=== PATIENT | male | born 1955 | race Caucasian/White ===

== ENCOUNTER → 2022-02-21 | Outpatient (CLI) | payer OTHER, SELFPAY | END | disposition home or self-care (01) | PROVIDERS: Referring Provider Internal Medicine Gastroenterology; Visit Provider Internal Medicine Gastroenterology | DX: R19.7 Diarrhea, unspecified (principal); Z83.79 Family history of other diseases of the digestive system | CPT/HCPCS: 36415 ==

== ENCOUNTER 2022-07-03 09:58 | Outpatient (CLI) | payer OTHER, SELFPAY ==
[2022-07-03 10:37] LABS: Absolute Lymphocyte Count 1.55 X10^3/uL (0.83-4.51); Absolute Neutrophil Count 4.5 X10^3/uL (2.0-7.7); Basophil# 0.05 X10^3/uL; Basophil% 0.7 % (0-1); Eosinophil# 0.12 X10^3/uL; Eosinophils% 1.8 % (0-5); Erythrocyte Sedimentation Rate 10 mm/hr (0-20); Hematocrit 43.5 % (40-54); Hemoglobin 14.4 g/dL (13.0-16.5); Lymphocyte # 1.55 X10^3/ul (0.83-4.51); Mean Corp Hgb Conc 33.1 g/dL (32-36); Mean Corpuscular Hgb 28.8 pg (27.0-32.0); Mean Platelet Vol. 9.6 fl (6.2-12.0); Monocyte# 0.55 X10^3/uL; Monocyte% 8.2 % (0-10); NRBC Flagged by Analyzer 0 % (0-5); Neutrophil # 4.45 X10^3/uL (2.7-7.7); Neutrophil % 66.2 % (47-70); Platelet Count 393 K/mm3 (150-450); RBC Distribution Width CV 13.3 % (11.6-14.6); RBC Distribution Width SD 42.5 fl (35.1-43.9); White Blood Count 6.7 K/mm3 (4.4-11.0)
[2022-07-03 11:12] LABS: ALB/GLOB Ratio 0.9 RATIO (0.9-2.4); AST(SGOT) 24 U/L (15-37); Alanine Aminotransfer ALT/SGPT 33 U/L (16-61); Albumin, Serum 3.7 g/dL (3.2-5.0); Alkaline Phosphatase 123 U/L (45-117); Anion Gap 7 (5-15); BUN 14 mg/dL (7-18); BUN/Creat Ratio 18.7 RATIO (10-20); CRP < 2.90 mg/L (0.0-3.0); Calcium,Total 8.8 mg/dL (8.5-10.1); Chloride 104 mmol/L (98-107); Creatinine, Serum 0.75 mg/dL (0.70-1.30); EST Glomerular Filtration Rate 110 mL/min (>60); Est Glom Filt Rate - Afr Amer 133 mL/min (>60); Globulin 3.9 g/dL (2.2-4.2); Glucose 108 mg/dL (74-106); LDH 200 U/L (87-241); Potassium 3.9 mmol/L (3.5-5.1); Protein, Total 7.6 g/dL (6.4-8.2); Sodium Level 140 mmol/L (136-145)
[2022-07-04 15:08] LABS: Anti-Centromere B Ab <0.2 AI (0.0-0.9); Anti-Chromatin <0.2 AI (0.0-0.9); Anti-Jo <0.2 AI (0.0-0.9); Anti-Scleroderma-70 AB <0.2 AI (0.0-0.9); Endomysial Antibody IgA Negative (Negative); RNP Ab <0.2 AI (0.0-0.9); SJOGREN'S Anti-SS-A test < 0.2 AI (0.0-0.9); SJOGREN'S Anti-SS-B test < 0.2 AI (0.0-0.9); Smith Ab <0.2 AI (0.0-0.9)
[2022-07-04 16:23] LABS: Immunoglobulin A 128 mg/dL (61-437); t-Transglutaminase IgA <2 U/mL (0-3)
[2022-07-04 16:24] LABS: Anti-dsDNA Ab <1 IU/mL (0-9)
[2022-07-06 00:07] LABS: Albumin 3.9 g/dL (2.9-4.4); Alpha-1-Globulins 0.3 g/dL (0.0-0.4); Alpha-2-Globulins 0.8 g/dL (0.4-1.0); Cytoplasmic Ab (C-ANCA) <1:20 titer (Neg:<1:20); Gamma Globulin 1.2 g/dL (0.4-1.8); Immunoglobulin A 126 mg/dL (61-437); Immunoglobulin E 28 IU/mL (6-495); Immunoglobulin G 1142 mg/dL (603-1613); Immunoglobulin M 90 mg/dL (20-172); PROEL- TOTAL PROTEIN 7.4 g/dL (6.0-8.5)
[2022-07-06 10:27] LABS: Perinuclear Ab (P-ANCA) <1:20 titer (Neg:<1:20)
[2022-07-06 10:29] LABS: Calprotectin, Stool <16 ug/g (0-120)
== END 2022-07-03 23:59 | disposition home or self-care (01) ==
LOC: LAB 10:01
PROVIDERS: Visit Provider Nurse Practitioner Adult Health
DX: R19.8 Other specified symptoms and signs involving the digestive system and abdomen (principal); K52.9 Noninfective gastroenteritis and colitis, unspecified
CPT/HCPCS: 36415; 80053; 82784; 82785; 83516; 83615; 83630; 83993; 84165; 85025; 85652; 86140; 86225; 86235; 86255; 86256; 86334; 87493; 87506

== ENCOUNTER 2022-07-04 08:44 | Outpatient (CLI) | payer OTHER, SELFPAY | END 2022-07-04 23:59 | disposition home or self-care (01) | PROVIDERS: Referring Provider Nurse Practitioner Adult Health; Visit Provider Nurse Practitioner Adult Health | DX: K52.9 Noninfective gastroenteritis and colitis, unspecified (principal) | CPT/HCPCS: 87177; 87209 ==

== ENCOUNTER → 2022-08-01 | Outpatient (CLI) | payer OTHER, SELFPAY ==
--- NOTE | 2022-08-01 17:46 | CT_ITS ---
STUDY: CT ABDOMEN AND PELVIS WITH CONTRAST REASON FOR EXAM: Female, 67 years old. Chronic diarrhea, lower abd pain -- oral and IV RADIATION DOSAGE (If Supplied By Facility): CTDIvol = ( 14.36 ) mGy, DLP = ( 1183.34 ) mGycm TECHNIQUE: Transaxial images were obtained from the dome of the diaphragm to the symphysis pubis with oral contrast. 100mL Isovue-370 was administered. Sagittal and coronal images were reconstructed. Individualized dose optimization techniques were used for this CT. COMPARISON: None. FINDINGS: The visualized lung bases are unremarkable. The visualized portions of the heart are within normal limits. Normal liver. Normal gallbladder and extrahepatic biliary system. Normal spleen. Normal pancreas. Normal bilateral adrenal glands. Normal right kidney. Normal left kidney. Normal visualized stomach. Normal small intestine. Normal colon. The appendix is visualized and appears normal. There is diffuse atherosclerotic calcification of the abdominal aorta, without a demonstrated aneurysm. Normal inferior vena cava. Normal retroperitoneum. Normal urinary bladder. There is atrophy of the uterus. No free fluid in the abdomen or pelvis. Normal abdominal wall. There is mild degenerative change of the spine. CT/Abdomen/Pelvis WITH Contrast IMPRESSION: No dominant mass or obstruction. No hydronephrosis. Electronically Signed: Armando Watson MD at 19:00 [facility] ,
== END | disposition home or self-care (01) ==
LOC: CT 17:41
PROVIDERS: Referring Provider Nurse Practitioner Adult Health; Visit Provider Nurse Practitioner Adult Health
DX: K52.9 Noninfective gastroenteritis and colitis, unspecified (principal); I70.0 Atherosclerosis of aorta; N85.8 Other specified noninflammatory disorders of uterus; R10.9 Unspecified abdominal pain
CPT/HCPCS: 74177; Q9967

== ENCOUNTER 2022-08-29 05:22 | Day surgery (SDC) | payer OTHER, SELFPAY ==
[2022-08-29] VITALS (7 sets, daily range): BP systolic 80–129; BP diastolic 56–92; PULSE 71–102; RESP 16; TEMP 36.1–36.3; O2SAT 94–100; BMI 31.8
--- NOTE | 2022-08-29 | GASB_PTH ---
PATIENT: JUAN GARVEY LOC: [facility] U#:[id number] AGE/SX: 67/F ROOM: RE08/29/[address]: Dr. Jovanny Santiago DO : 1955 BED: DIS: 08/29/2022 SPEC #: [id number] RECD: 08/29/22 13:21 STATUS: JOSE YAYA #: [id number] CYNTHIA: 08/29/22 00:[address]: Jovanny Santiago DEPT: SURGICAL PATHOLOGY RECD BY: John Vizcaino ENTERED: 08/30/22 09:23 SP TYPE: Gastric Bx GABRIELLE DR: Dr. Gloria Perkins DO Tissues: A - Duodenum, NOS B - Gastric mucous membrane C - Ileum, NOS D - COLON BIOPSY E - Transverse colon Procedures: Surgery Specimen Level IV HEADER OPERATION: Colonoscopy, EGD ([facility]), biopsies, polypectomy PRE-OP DIAGNOSIS: Chronic diarrhea, tenesmus, abdominal pain TISSUE SUBMITTED: A ? Duodenum biopsy, B ? Gastric pylorus biopsy, C ? Terminal ileum Duodenum biopsy, D ? Random colonic biopsies, E ? Polyp transverse colon MICROSCOPIC DIAGNOSIS A. Duodenum, biopsy: Minimal nonspecific chronic inflammation. B. Gastric pylorus, biopsy: Mild chronic inflammation. See comment. C. Terminal ileum, biopsy: No pathologic change. D. Colon, random biopsy: No pathologic change. E. Transverse colon polyp, biopsy: Tubular adenoma. AM:zari 08/31/2022 COMMENT B. The results of immunohistochemistry for Helicobacter pylori will be reported separately ([id number]). MICROSCOPIC DESCRIPTION Slides are reviewed. GROSS DESCRIPTION A - Received in fixative is one container labeled with the patient's name and designated duodenum. The specimen consists of three irregular fragments of light reddy soft tissue that in aggregate measure 1 x 0.3 x 0.1 cm. The specimen is totally submitted in one cassette. B - Received in fixative is one container labeled with the patient's name and designated gastric pylorus biopsy. The specimen consists of two irregular fragments of light reddy soft tissue that in aggregate measure 0.6 x 0.5 x 0.1 cm. The specimen is totally submitted in one cassette. C - Received in fixative is one container labeled with the patient's name and designated terminal ileum biopsy. The specimen consists of multiple irregular fragments of light reddy soft tissue that in aggregate measure 1.2 x 1 x 0.1 cm. The specimen is totally submitted in one cassette. D - Received in fixative is one container labeled with the patient's name and designated random colon biopsy. The specimen consists of multiple irregular fragments of light reddy soft tissue that in aggregate measure 2 x 1 x 0.1 cm. The specimen is totally submitted in one cassette. E - Received in fixative is one container labeled with the patient's name and designated polyp transverse colon. The specimen consists of one irregular fragment of light reddy soft tissue that measures 0.5 x 0.3 x 0.1 cm. The specimen is totally submitted in one cassette. / AM:zari 08/30/2022 TC:3 CPT: 63108 x5
[2022-08-29] MEDS: Lactated Ringers 1,000 ML 15 ML IV (05:54)
--- NOTE | 2022-08-29 06:29 | HP.PCM_ITS ---
History and Physical Date of Admission: 08/29/22 [facility] HPI Chief Complaint: diarrhea Details: JUAN GARVEY, is a 67 M who presents to the office today for diarrhea. She reports a long history of IBS with diarrhea which worsened significantly in December 2021. She ate sauerkraut daily x 3 days and that's when the diarrhea flared. Prior to that she used to take Imodium 1-2 pills most days to manage her diarrhea. Now she may need up to 8 Imodium tablets per day. She is also taking colestipol 2 grams daily. On that regimen she has 3-5 BMs daily in the AM when she gets up, starts w/in 30 min of getting up, not related to eating, then has tenesmus the remainder of the day. Often has stool when she wipes even if she doesn't have BM. Stool can be formed or can be loose. Has to wear pad for fear of accidents. Has accidents because of urgency. Always has to take extra clothes with her. Sometimes has dumping after eating. Had nocturnal diarrhea when this started earlier this year. Gets a pain in the right lower back when she is going to have bad diarrhea. Stopped dicyclomine 2 wks ago, no problem with cramps, no change in diarrhea. Treated with xifaxan earlier this year x 2. May have tried viberzi, no significant relief. On probiotic w/o relief. Now on colestipol 2 pills once a day, and is better but still not back to baseline. Daughter and sister have celiac disease, pt has the gene for celiac. Daughter was false negative for celiac until she was biopsied. Good appetite. No nausea, vomiting, heartburn. No melena or hematochezia. Weight is stable. Denies joint pain/inflammation, rash, eye oral symptoms. Last colonoscopy 2019--negative. No prior EGD. 12/2021 neg C diff 04/2022 hgb 14.5, platelets 374, bili 1.5 high, normal ast/alt/alk phos, TSH 1.26 ROS Const Constitutional: No fatigue ENT ENT: No difficulty swallowing Gastro GI: Positive for diarrhea; No abdominal pain, belching, bloating, change in bowel habits, change in stool character, coffee ground emesis, constipation, cramping, heartburn, difficulty swallowing, feeling full early, excessive flatus, incontinent of stools, Vomiting blood/hematemesis, Blood in stool, loose stools, Black,tarry stools, nausea/dyspepsia, pain with swallowing, vomiting or other Musc Musculoskeletal: Positive for numbness and tingling; No joint pain Skin Skin: No yellowing of the eye or itchy eyes Neuro Neurology: Positive for numbness and tingling Psych Psychiatric: No anxiety and No depression Endo Endocrine: No fatigue Aller/Imm Allergy/Immunologic: No itchy eyes Yifan/Lymp Hematologic/Lymphatic: No easy bleeding or easy bruising Exam Const General: cooperative and comfortable Nutritional Appearance: obese Orientation: alert, awake and oriented x3 HENMT Head: normal to inspection Eyes Conjunctivae: conjunctivae normal Sclera: sclerae normal Resp Effort & Inspection: normal respiratory effort GI Inspection: normal to inspection Palpation: soft, no hepatosplenomegaly, no masses and nontender Skin General: no rashes or lesions noted Neuro Gait: normal gait Quality Reporting Tobacco Screening ([facility] 138) Smoking Status: Never smoker Assessment and Plan Assessment and Plan (1) Chronic diarrhea: ?Status:?Chronic ?Plan: 67 yr old female with chronic diarrhea, hx of IBS-diarrhea, but significantly worse x 6 months. Tests for celiac, IBD, autoimmune, inflammation Stool tests for inflammation, infection. Once we r/o infection we can rx lomotil (would want mailorder rx). Will get EGD to eval for gastritis, bile reflux, eval of duodenum for celiac, and colonoscopy to eval for IBD, microscopic colitis, polyps, malignancy. Consider capsule endoscopy. CT abd pel w/ oral and IV f/u after endoscopies, will call with lab results in the meantime (2) Tenesmus: ?Status:?Acute ?Plan: as above (3) Abdominal pain: ?Status:?Acute ?Plan: as above ? ? ? Orders: Orders Comprehensive Metabolic Profil Today K52.9 - Noninfective gastroenteritis and colitis, unspecified, R19.8 - Other specified symptoms and signs involving the digestive system and abdomen ? CRP Today K52.9 - Noninfective gastroenteritis and colitis, unspecified, R19.8 - Other specified symptoms and signs involving the digestive system and abdomen ? LDH Today K52.9 - Noninfective gastroenteritis and colitis, unspecified, R19.8 - Other specified symptoms and signs involving the digestive system and abdomen ? CBC W/Diff, Automated Today K52.9 - Noninfective gastroenteritis and colitis, unspecified, R19.8 - Other specified symptoms and signs involving the digestive system and abdomen ? Erythrocyte Sed Rate Today K52.9 - Noninfective gastroenteritis and colitis, unspecified, R19.8 - Other specified symptoms and signs involving the digestive system and abdomen ? ALEXIS Comprehensive Panel Today K52.9 - Noninfective gastroenteritis and colitis, unspecified, R19.8 - Other specified symptoms and signs involving the digestive system and abdomen ? Calprotectin, Stool Today K52.9 - Noninfective gastroenteritis and colitis, unspecified, R19.8 - Other specified symptoms and signs involving the digestive system and abdomen ? Stool Lactoferrin/WBC Today K52.9 - Noninfective gastroenteritis and colitis, unspecified, K58.9 - Irritable bowel syndrome without diarrhea, R19.8 - Other specified symptoms and signs involving the digestive system and abdomen ? ANCA Today K52.9 - Noninfective gastroenteritis and colitis, unspecified, R19.8 - Other specified symptoms and signs involving the digestive system and abdomen ? Celiac Disease Profile Today K52.9 - Noninfective gastroenteritis and colitis, unspecified, R19.8 - Other specified symptoms and signs involving the digestive system and abdomen ? Immunoglobulins G/A/M/E Today K52.9 - Noninfective gastroenteritis and colitis, unspecified, R19.8 - Other specified symptoms and signs involving the digestive system and abdomen ? HARRY + Protein Elect, Serum Today K52.9 - Noninfective gastroenteritis and colitis, unspecified, R19.8 - Other specified symptoms and signs involving the digestive system and abdomen ? Miscellaneous Lab Procedure Today K52.9 - Noninfective gastroenteritis and colitis, unspecified, R19.8 - Other specified symptoms and signs involving the digestive system and abdomen ? CDIFF (PCR) Today K52.9 - Noninfective gastroenteritis and colitis, unspecified ? ENTERIC PATHOGEN PANEL STOOL Today K52.9 - Noninfective gastroenteritis and colitis, unspecified, K58.9 - Irritable bowel syndrome without diarrhea ? Abdomen/Pelvis WITH Contrast Today K52.9 - Noninfective gastroenteritis and colitis, unspecified, R10.9 - Unspecified abdominal pain ? Medications: Discontinued dicyclomine ?? Discontinued Reason:? Pt no longer taking 20 mg? PO BID ? ? I have examined the patient and the H&P has been reviewed. There are no clinical changes since date of exam.
--- NOTE | 2022-08-29 06:30 | IMM_PTH ---
PATIENT: JUAN GARVEY LOC: [facility] U#:[id number] AGE/SX: 67/F ROOM: RE08/29/[address]: Dr. Jovanny Santiago DO : 1955 BED: DIS: 08/29/2022 SPEC #: [id number] RECD: 08/30/22 12:16 STATUS: JOSE YAYA #: [id number] CYNTHIA: 08/29/22 06:[address]: Jovanny Santiago DEPT: IMMUNOHISTOCHEMISTRY RECD BY: Onelia Merida ENTERED: 08/30/22 12:17 SP TYPE: IMMUNO OTHR DR: Dr. Gloria Perkins DO Tissues: B - Stomach, NOS Procedures: H Pylori (initial) PHYSICIAN & INSTITUTION [place] [id number] SPECIMEN INFORMATION: Tissue Source: B ? Gastric pylorus Clinical Info: Diarrhea, abdominal pain, tenesmus Specimen Number: [id number] CPT code: 67762 METHODOLOGY: Deparaffinized sections of prefer/formalin-fixed tissue or PAP/DQ stained slides are incubated with monoclonal/polyclonal antibodies/oligonucleotide probes. Localization is made via biotin free immunoperoxidase method. Appropriate controls are performed and reacted as expected. Results on target cell population are indicated in the following table: RESULTS: ANTIBODY / CLONE RESULT Block B H Pylori (polyclonal) negative These tests were developed and their performance characteristics determined by [facility]. They may not have been cleared or approved by the U.S. Food and Drug Administration. The FDA has determined that such clearance or approval is not necessary. The above immunohistochemical/dualISH markers are ordered and reviewed by the Pathologist. INTERPRETATION: B. Gastric pylorus, biopsy: Negative for Helicobacter pylori organisms. AM:azri 08/31/2022
--- NOTE | 2022-08-29 07:12 | OP.EGD_ITS ---
Patient Name: Leticia Reyes Procedure Date: 08/29/2022 6:19 AM Date of : 1955 Age: 67 Procedure: Upper GI endoscopy Indications: Epigastric abdominal pain Providers: Jovanny Santiago DO Medicines: Monitored Anesthesia Care Patient Profile: This is a 67 year old female. Refer to note in patient chart for documentation of history and physical. Patient has symptoms of chronic abdominal cramping. Complications: No immediate complications. Procedure: Pre-Anesthesia Assessment: - Prior to the procedure, a History and Physical was performed, and patient medications and allergies were reviewed. The risks and benefits of the procedure and the sedation options and risks were discussed with the patient. All questions were answered and informed consent was obtained. Patient identification and proposed procedure were verified by the physician in the pre-procedure area. Mental Status Examination: alert and oriented. Airway Examination: normal oropharyngeal airway and neck mobility. Prophylactic Antibiotics: The patient does not require prophylactic antibiotics. Prior Anticoagulants: The patient has taken no previous anticoagulant or antiplatelet agents. After reviewing the risks and benefits, the patient was deemed in satisfactory condition to undergo the procedure. The anesthesia plan was to use monitored anesthesia care (MAC). Immediately prior to administration of medications, the patient was re-assessed for adequacy to receive sedatives. The heart rate, respiratory rate, oxygen saturations, blood pressure, adequacy of pulmonary ventilation, and response to care were monitored throughout the procedure. The physical status of the patient was re-assessed after the procedure. After obtaining informed consent, the endoscope was passed under direct vision. Throughout the procedure, the patient's blood pressure, pulse, and oxygen saturations were monitored continuously. The colonoscope was introduced through the mouth, and advanced to the second part of duodenum. The upper GI endoscopy was accomplished without difficulty. The patient tolerated the procedure well. Scope In: 6:38:50 AM Scope Out: 6:43:50 AM Total Procedure Duration Time 0 hours 5 minutes 0 seconds Findings: LA Grade B (one or more mucosal breaks greater than 5 mm, not extending between the tops of two mucosal folds) esophagitis with no bleeding was found 35 to 37 cm from the incisors. A small hiatal hernia was present. Patchy mildly erythematous mucosa without bleeding was found in the prepyloric region of the stomach. Biopsies were taken with a cold forceps for histology. Verification of patient identification for the specimen was done. Estimated blood loss was minimal. Four non-bleeding superficial duodenal ulcers with no stigmata of bleeding were found in the duodenal bulb. The largest lesion was 1 mm in largest dimension. Biopsies were taken with a cold forceps for histology. Verification of patient identification for the specimen was done. This was biopsied with a cold forceps for histology. Verification of patient identification for the specimen was done. Estimated blood loss was minimal. Impression: - LA Grade B reflux esophagitis. - Small hiatal hernia. - Erythematous mucosa in the prepyloric region of the stomach. Biopsied. - Multiple non-bleeding duodenal ulcers with no stigmata of bleeding. Biopsied. Recommendation: - Discharge patient to home. - Resume previous diet. - Continue present medications. - Await pathology results. Procedure Code(s): --- Professional --- 32849, Esophagogastroduodenoscopy, flexible, transoral; with biopsy, single or multiple CPT copyright 2017 [employer]. All rights reserved. The codes documented in this report are preliminary and upon radiology technologist review may be revised to meet current compliance requirements. Jovanny Santiago DO 08/29/2022 7:12:03 AM This report has been signed electronically. Number of Addenda: 0 Note Initiated On: 08/29/2022 6:19 AM
--- NOTE | 2022-08-29 07:12 | OP.CCLET_ITS ---
08/29/2022 Gloria Perkins Do Re : Upper GI endoscopy procedure for Leticia Reyes Dear Dr. Perkins This procedure was performed on Monday, August 29, 2022. My impressions and recommendations are as follows: Impressions : - LA Grade B reflux esophagitis. - Small hiatal hernia. - Erythematous mucosa in the prepyloric region of the stomach. Biopsied. - Multiple non-bleeding duodenal ulcers with no stigmata of bleeding. Biopsied. Recommendations : - Discharge patient to home. - Resume previous diet. - Continue present medications. - Await pathology results. My findings are described in the full procedure note, which is enclosed. If I can be of further assistance, please feel free to contact me at . Sincerely, Jovanny Santiago, 08/29/2022 7:12:03 AM This report has been signed electronically.
--- NOTE | 2022-08-29 07:20 | OP.COLON_ITS ---
Patient Name: Leticia Reyes Procedure Date: 08/29/2022 6:44 AM Date of : 1955 Age: 67 Procedure: Colonoscopy Indications: Chronic diarrhea, Clinically significant diarrhea of unexplained origin Providers: Jovanny Santiago DO Medicines: Monitored Anesthesia Care Patient Profile: This is a 67 year old female. Refer to note in patient chart for documentation of history and physical. Patient has symptoms of chronic abdominal cramping. Last Colonoscopy: within the past 3 years. Complications: No immediate complications. Procedure: Pre-Anesthesia Assessment: - Prior to the procedure, a History and Physical was performed, and patient medications and allergies were reviewed. The risks and benefits of the procedure and the sedation options and risks were discussed with the patient. All questions were answered and informed consent was obtained. Patient identification and proposed procedure were verified by the physician in the pre-procedure area. Mental Status Examination: alert and oriented. Airway Examination: normal oropharyngeal airway and neck mobility. Prophylactic Antibiotics: The patient does not require prophylactic antibiotics. Prior Anticoagulants: The patient has taken no previous anticoagulant or antiplatelet agents. After reviewing the risks and benefits, the patient was deemed in satisfactory condition to undergo the procedure. The anesthesia plan was to use monitored anesthesia care (MAC). Immediately prior to administration of medications, the patient was re-assessed for adequacy to receive sedatives. The heart rate, respiratory rate, oxygen saturations, blood pressure, adequacy of pulmonary ventilation, and response to care were monitored throughout the procedure. The physical status of the patient was re-assessed after the procedure. After I obtained informed consent, the scope was passed under direct vision. Throughout the procedure, the patient's blood pressure, pulse, and oxygen saturations were monitored continuously. The colonoscope was introduced through the anus and advanced to the terminal ileum. The colonoscopy was performed without difficulty. The patient tolerated the procedure well. The quality of the bowel preparation was good. Moderate Sedation: Moderate (conscious) sedation was personally administered by an anesthesia professional. The following parameters were monitored: oxygen saturation, heart rate, blood pressure, and response to care. Scope In: 6:46:02 AM Scope Withdrawal Time 0 hours 12 minutes 3 seconds Scope Out: 7:02:22 AM Total Procedure Duration Time 0 hours 16 minutes 20 seconds Findings: The perianal exam findings include a perianal rash. A 5 mm polyp was found in the transverse colon. The polyp was sessile. The polyp was removed with a cold snare. Resection and retrieval were complete. Verification of patient identification for the specimen was done. Estimated blood loss was minimal. An area of mildly congested mucosa was found in the sigmoid colon and in the transverse colon. Biopsies were taken with a cold forceps for histology. Verification of patient identification for the specimen was done. Estimated blood loss was minimal. A few small-mouthed diverticula were found in the recto-sigmoid colon and sigmoid colon. A patchy area of the distal ileum was congested. Biopsies were taken with a cold forceps for histology. Verification of patient identification for the specimen was done. Estimated blood loss was minimal. Impression: - Perianal rash found on perianal exam. - One 5 mm polyp in the transverse colon, removed with a cold snare. Resected and retrieved. - Congested mucosa in the sigmoid colon and in the transverse colon. Biopsied. - Diverticulosis in the recto-sigmoid colon and in the sigmoid colon. - Congested mucosa in the distal ileum. Biopsied Recommendation: - Discharge patient to home. - Resume previous diet. - Diflucan (fluconazole) 100 mg PO daily for 2 weeks. - Desitin cream to rectum twice a day x3 - Cholestyramine twice daily. Hold for constipation - Xray of the lumbar sacral spine because of poor rectal tone and possible MRI pending the findings - Continue present medications. - Repeat colonoscopy is recommended for adenoma surveillance. The colonoscopy date will be determined after pathology results from today's exam become available for review. Procedure Code(s): --- Professional --- 85207, Colonoscopy, flexible; with removal of tumor(s), polyp(s), or other lesion(s) by snare technique 77532, 59, Colonoscopy, flexible; with biopsy, single or multiple CPT copyright 2017 [employer]. All rights reserved. The codes documented in this report are preliminary and upon national sales trainer review may be revised to meet current compliance requirements. Jovanny Santiago DO 08/29/2022 7:19:46 AM This report has been signed electronically. Number of Addenda: 0 Note Initiated On: 08/29/2022 6:44 AM
--- NOTE | 2022-08-29 07:20 | OP.CCLET_ITS ---
08/29/2022 Gloria Perkins Do Re : Colonoscopy procedure for Leticia Reyes Dear Dr. Perkins This procedure was performed on Monday, August 29, 2022. My impressions and recommendations are as follows: Impressions : - Perianal rash found on perianal exam. - One 5 mm polyp in the transverse colon, removed with a cold snare. Resected and retrieved. - Congested mucosa in the sigmoid colon and in the transverse colon. Biopsied. - Diverticulosis in the recto-sigmoid colon and in the sigmoid colon. - Congested mucosa in the distal ileum. Biopsied Recommendations : - Discharge patient to home. - Resume previous diet. - Diflucan (fluconazole) 100 mg PO daily for 2 weeks. - Desitin cream to rectum twice a day x3 - Cholestyramine twice daily. Hold for constipation - Xray of the lumbar sacral spine because of poor rectal tone and possible MRI pending the findings - Continue present medications. - Repeat colonoscopy is recommended for adenoma surveillance. The colonoscopy date will be determined after pathology results from today's exam become available for review. My findings are described in the full procedure note, which is enclosed. If I can be of further assistance, please feel free to contact me at . Sincerely, Jovanny Santiago, 08/29/2022 7:19:46 AM This report has been signed electronically.
== END 2022-08-29 08:28 | disposition home or self-care (01) ==
LOC: EN 05:23 → AC 05:23
PROVIDERS: Visit Provider Internal Medicine Gastroenterology
PROC: 0DJD8ZZ Inspection of Lower Intestinal Tract, Via Natural or Artificial Opening Endoscopic (ICD-10-PCS; CPT 45378; principal; 2022-08-29 06:25)
DX: K52.9 Noninfective gastroenteritis and colitis, unspecified (principal); K57.30 Diverticulosis of large intestine without perforation or abscess without bleeding; K44.9 Diaphragmatic hernia without obstruction or gangrene; K63.5 Polyp of colon; K26.9 Duodenal ulcer, unspecified as acute or chronic, without hemorrhage or perforation; K21.00 Gastro-esophageal reflux disease with esophagitis, without bleeding; M54.50 Low back pain, unspecified
CPT/HCPCS: 45380; 43239; 45385; 88305; 88342; J7120; J2405

== ENCOUNTER → 2022-09-11 | Outpatient (CLI) | payer OTHER, SELFPAY ==
--- NOTE | 2022-09-11 09:24 | RAD_ITS ---
STUDY: X-RAY - LUMBAR SPINE REASON FOR EXAM: Female, 67 years old. poor rectal tone, fecal incontinence TECHNIQUE: 3 view(s) of the lumbar spine were obtained. COMPARISON: None FINDINGS: Normal lumbar lordosis. There is mild dextro scoliosis. Grade 1 spondylolisthesis at L3-4 and L4-5. Normal vertebral bodies and endplates. Mild narrowing of L4-5 displaced. The soft tissue structures are unremarkable. RAD/Lumbar Spine 2 or 3 Views IMPRESSION: Mild scoliosis and degenerative change. No acute fracture or other significant bony pathology Electronically Signed: Evert Cruz MD at 20:18 EST ,
[2022-09-11 11:37] LABS: Bilirubin, Direct 0.14 mg/dL (0.00-0.30); GGTP 22 U/L (5-55)
[2022-09-12 18:50] LABS: Anti-Mitochondrial AB <20.0 Units (0.0-20.0); Anti-Smooth Muscle ABS 15 Units (0-19)
== END | disposition home or self-care (01) ==
PROVIDERS: Referring Provider Nurse Practitioner Adult Health; Visit Provider Nurse Practitioner Adult Health
DX: R17 Unspecified jaundice (principal); K62.89 Other specified diseases of anus and rectum; R15.9 Full incontinence of feces
CPT/HCPCS: 36415; 72100; 82247; 82248; 82977; 83516

== ENCOUNTER → 2022-10-02 | Outpatient (CLI) | payer OTHER, SELFPAY ==
--- NOTE | 2022-10-02 07:48 | US_ITS ---
STUDY: ABDOMINAL ULTRASOUND - RIGHT UPPER QUADRANT REASON FOR VISIT: Female, 67 years old postprandial diarrhea -- RUQ TECHNIQUE: Ultrasound evaluation of the right upper quadrant was performed with real-time and static ng-scale imaging. TECHNICAL QUALITY: Adequate. COMPARISON: Comparison is made with prior CT scan of the abdomen and pelvis dated 08/01/2022. FINDINGS: Liver: The liver measures 14.6 cm. There is increased echogenicity consistent with fatty infiltration. The bile ducts are within normal limits. There is hepatic color flow. The direction of portal flow is hepatopetal. There is no demonstrated mass lesion. Gallbladder: Normal distended gallbladder. The gallbladder wall measures 2.0 mm. There is a negative sonographic Inman''s sign. There is no pericholecystic fluid. There are no gallstones. Common Bile Duct (C.B.D.): The common bile duct measures 5.0 mm. Pancreas: Normal size of the head, body and tail of the pancreas. There is normal echogenicity of the pancreas. There is no demonstrated pancreatic mass or cyst. Right Kidney: Normal size of the right kidney. The right kidney measures 10.3 cm x 4.7 cm x 4.4 cm. Normal renal cortex. The right cortex measures 1.1 cm. There is no demonstrated renal mass or cyst. There is no right hydronephrosis. US/Abdomen Limited IMPRESSION: Diffuse fatty infiltration of the liver. Electronically Signed: Titus Arndt MD at 12:44 EST ,
== END | disposition home or self-care (01) ==
PROVIDERS: Visit Provider Nurse Practitioner Adult Health
DX: K52.9 Noninfective gastroenteritis and colitis, unspecified (principal)
CPT/HCPCS: 76705

== ENCOUNTER → 2022-10-17 | Outpatient (CLI) | payer OTHER, SELFPAY ==
--- NOTE | 2022-10-17 08:38 | US_ITS ---
STUDY: ABDOMINAL ULTRASOUND - ELASTOGRAPHY REASON FOR VISIT: Female, 67 years old. Fatty infiltration of the liver. TECHNIQUE: Liver stiffness measurements were obtained on a Hublished RS 85 ultrasound machine using a CA 1-7 probe following the SRU guidelines. 3 measurements were obtained using a 2-D-SWE method. TheIQR/M was 25 % suggesting a quality data set. TECHNICAL QUALITY: Adequate. COMPARISON: Comparison is made with prior ultrasound of the right upper quadrant dated October 02, 2022. FINDINGS: Liver: Fatty infiltration of the liver. Median liver stiffness measured 7 kPa. US/Elastography Parenchyma/Organ IMPRESSION: Liver stiffness measures 7 kPa compatible with F2-F3 (Mild to moderate liver fibrosis) Metavir score. Electronically Signed: Titus Arndt MD at 12:03 EDT ,
--- NOTE | 2022-10-17 08:38 | NM_ITS ---
CLINICAL: 67-year-old female with history of postprandial diarrhea, elevation of the serum alkaline phosphatase levels. RADIONUCLIDE HEPATOBILIARY SCINTIGRAPHY COMPARISON: Abdominal ultrasound report 10/02/2022 FINDINGS: Following the intravenous administration of 5.5 mCi of 99m Tc Mebrofenin, hepatobiliary images reveal: 1. Relatively prompt and homogeneous radiopharmaceutical concentration is noted by a normal sized liver. No parenchymal defects are identified. 2. Gallbladder activity is identified at 30 minutes post radiopharmaceutical administration. 3. Small intestinal tract is observed at 60 minutes following tracer injection. 4. Washout of the radiopharmaceutical by the hepatic parenchyma appears qualitatively normal. Cholecystokinin (0.02 ug/kg) was administered intravenously over a 30-minute period. The post CCK gallbladder ejection fraction calculated at 20 minutes following Cholecystokinin administration was noted to be 46.0 % (normal greater than 35%). During 30 minutes of post CCK imaging, there is no scintigraphic evidence of reflux of the radiotracer into the common hepatic duct or refilling of the gallbladder. NM/Hepatobilliary Img w/Pharm Int IMPRESSION: 1. NORMAL 99m Tc Mebrofenin hepatobiliary imaging examination with Cholecystokinin. A. A gallbladder ejection fraction calculated to be greater than 35% following the administration of Cholecystokinin makes the probability of functional hepatobiliary disease (gallbladder and/or sphincter of Oddi dyskinesia) and/or organic hepatobiliary disease (chronic acalculous cholecystitis and/or cystic duct syndrome) to be low. (Trace Parisi et al, Journal of Nuclear Medicine 32:1695, 1991). Electronically Signed: Zeyad Perdomo, at 22:33 EDT ,
== END | disposition home or self-care (01) ==
PROVIDERS: Referring Provider Nurse Practitioner Adult Health; Visit Provider Nurse Practitioner Adult Health
DX: K76.0 Fatty (change of) liver, not elsewhere classified (principal); R10.9 Unspecified abdominal pain
CPT/HCPCS: 76981; 78227; A9537; J2805

== ENCOUNTER → 2022-10-23 | Outpatient (CLI) | payer OTHER, SELFPAY ==
[2022-10-27 08:53] LABS: Gastrin, Serum 12 pg/mL (0-115)
== END | disposition home or self-care (01) ==
LOC: LAB 13:35
PROVIDERS: Referring Provider Nurse Practitioner Adult Health; Visit Provider Nurse Practitioner Adult Health
DX: K52.9 Noninfective gastroenteritis and colitis, unspecified (principal)
CPT/HCPCS: 36415; 82941